=== PATIENT | male | born 1960 | race Caucasian/White ===

== ENCOUNTER → 2018-03-11 08:15 | Outpatient (CLI) | payer MEDICAID, SELFPAY ==
[2018-03-11 08:39] LABS: HCT 51.1 % (40.0-50.0); HGB 17.3 g/dL (13.5-17.5); Mean Corp. HGB Concentration 33.9 g/dL (32.0-36.0); Mean Corpuscular Hemoglobin 30.6 pg (27.0-33.0); Mean Corpuscular Volume 90.4 fL (80-95); Mean Platelet Volume 10.8 fL (8.0-11.0); Platelet Count 212 x1000/uL (130-400); RBC 5.65 m/cumm (4.50-6.00); RBC Distribution Width 13.1 % (11.8-14.1); White Blood Cell Count 10.85 k/cumm (4.4-10.8)
[2018-03-11 10:56] LABS: Anion Gap 10.5 mmol/L (3-11); BUN 9 mg/dL (7-18); CO2 28.5 mmol/L (21.0-32.0); CREATININE 1.19 mg/dL (0.70-1.30); Calcium 8.1 mg/dL (8.5-10.1); Chloride 100 mmol/L (98-107); Cholesterol 224 mg/dL (50-200); Glucose 284 mg/dL (70-100); HDL Cholesterol 40 mg/dL (40-60); LDL CHOLESTEROL 153 mg/dL (<100); Potassium 4.3 mmol/L (3.5-5.1); Sodium 139 mmol/L (136-145); Triglyceride 189 mg/dL (30-150)
== END ==
PROVIDERS: PCP Internal Medicine; Visit Provider Internal Medicine
DX: E11.9 Type 2 diabetes mellitus without complications (principal); E78.00 Pure hypercholesterolemia, unspecified; I10 Essential (primary) hypertension; F10.10 Alcohol abuse, uncomplicated
CPT/HCPCS: 36415; 80048; 80061; 83721; 85027

== ENCOUNTER 2018-09-10 22:32 | Emergency (ER) | payer MEDICAID, SELFPAY ==
--- NOTE | 2018-09-10 22:25 | DI.COMBO_ITS ---
SYMPTOM/DIAGNOSIS: RT HEMINEGLECT, MENTAL STATUS CHANGES NONCONTRAST HEAD CT: A noncontrast cranial CT was performed. There is moderate generalized cerebral atrophy. There are patchy areas of decreased attenuation in periventricular white matter consistent with microvascular ischemic changes. Probable small lacunar infarcts and tiny old cerebellar infarcts also noted. No evidence of acute intracranial hemorrhage, mass effect or midline shift. CONCLUSION: No evidence of acute intracranial process. PORTABLE AP CHEST: The heart is not enlarged. The lungs are grossly clear and well expanded. CONCLUSION: No evidence of acute disease.
--- NOTE | 2018-09-10 22:25 | W.ED.GENAD ---
Discharge Plan Disposition Patient Disposition: [facility] Condition: Serious Discharge Details Chief Complaint: AMS/LOC Clinical Impression: Acute CVA (cerebrovascular accident) Reason For Visit: DARA Primary Care Provider: Kay Sharp ED Provider: Alistair Wu Home Meds and New Rx's Prescriptions: No Action ibuprofen 200 MG tablet 600 mg PO Q4H PRN RF: 0 blood-glucose meter [OneTouch Ultra System Kit] 1 EACH kit 1 ea Miscellaneous DAILY Qty: 1 RF: 0 ammonium lactate 225 GM lotion 225 gm Topical HS PRNQty: 225 RF: 5 clotrimazole 45 GM cream 45 gm Topical BID Qty: 1 RF: 2 aspirin [Aspir-81] 81 MG tablet,delayed release (DR/EC) 81 mg PO DAILY Qty: 90 RF: 3 glimepiride [Amaryl] 2 MG tablet 2 mg PO DAILY Qty: 90 RF: 3 lanolin bpfhxoo-tr-x.pet-ceres 57 GM cream 1 miriam Topical DAILY Qty: 57 RF: 1 glimepiride 4 MG tablet 4 mg PO DAILY Qty: 90 RF: 3 atorvastatin 80 MG tablet 80 mg PO DAILY Qty: 90 RF: 3 blood-glucose meter [OneTouch Ultra2] 1 EACH kit 1 ea Miscellaneous DAILY PRNQty: 1 RF: 0 alcohol swabs [Alcohol Prep Pads] 1 EACH pads, medicated 1 ea Topical DAILY PRNQty: 100 RF: 3 ProAir HFA 8.5 GM HFA aerosol inhaler 1 - 2 puff Inhalation Q4H PRN Qty: 1 RF: 5 Spiriva with HandiHaler 18 MCG capsule, w/inhalation device 18 mcg Inhalation DAILY Qty: 90 RF: 3 metformin 1,000 MG tablet extended release 24hr 1,000 mg PO DAILY Qty: 90 RF: 3 amlodipine-benazepril 1 EACH capsule 1 ea PO DAILY Qty: 90 RF: 3 lancets [OneTouch Delica Lancets] 1 EACH misc 1 ea Miscellaneous DAILY Qty: 100 RF: 3 OneTouch Ultra Test 1 EACH strip 1 ea Miscellaneous DAILY Qty: 100 RF: 11 doxycycline monohydrate 100 MG capsule 100 mg PO BID Qty: 14 RF: 0 Symbicort 10.2 GM HFA aerosol inhaler 2 inh Inhalation BID Qty: 3 RF: 3 methocarbamol 500 MG tablet 500 mg PO TID PRNQty: 20 RF: 0 Medical Decision Making 58-year-old male presents via EMS. They report that the patient was found down, unresponsive by bystanders who were not very historians otherwise and unable to report last time patient seen and normal. He was noted to have right hemineglect and expressive aphasia en route. En route he was hypertensive approximately 200/100. EMS reports the patient had RUE tonic flexion at the scene with L gaze deviation. Family subsequently presented to the emergency department approximately 10:50 PM. They stated the patient was awake, alert, playing cribbage up until last seen normal at 9 PM. They state that he sleeps on the floor and he was next found in a position of sleeping on the floor but unresponsive with sonorous respirations and right hemineglect. Patient arrives afebrile with a pulse of 100, blood pressure 157/82 with right hemineglect. Eyes are open, deviated to the left, patient nonverbal, withdraws and localizes pain. For large territory stroke and patient sent for stat CT scan. This does not show any acute hemorrhage. CT and case reviewed with Dr. Tavarez who agrees with proceeding with thrombolytic therapy. I consented the patient's sisters for the administration of alteplase including the risk of hemorrhagic conversion. [facility] not available for transfer. [facility] to transport. Sisters- Lavern , and Anum Cho ([phone]) were consented for thrombolytic therapy. Lab Data Lab results reviewed: Yes I reviewed the patient's lab results. Laboratory Results - last 24 hr 09/10/18 09/10/18 09/10/18 22:30 22:30 22:30 WBC 13.41 H RBC 5.76 Hgb 17.3 Hct 50.2 H MCV 87.2 MCH 30.0 MCHC 34.5 RDW 12.3 Plt Count 214 MPV 10.8 Immature Gran % 0.6 Neutrophils % 63.1 Lymphocytes % 25.4 Monocytes % 8.5 Eosinophils % 2.2 Basophils % 0.2 Absolute Neutrophils 8.46 H Absolute Lymphocytes 3.41 H Absolute Monocytes 1.14 H Absolute Eosinophils 0.30 Absolute Basophils 0.03 PT INR APTT Sodium 137 Potassium 3.6 Chloride 96 L Carbon Dioxide 29.5 Anion Gap 11.5 H BUN 21 H Creatinine 1.56 H Estimated GFR/1.73 m2 46.27 Glucose 374 H Calcium 9.5 Magnesium 1.7 L Total Bilirubin 0.3 AST 12 L ALT 24 Alkaline Phosphatase 119 H Troponin I < 0.02 Total Protein 8.2 Albumin 3.5 Ethyl Alcohol < 3.0 09/10/18 22:30 WBC RBC Hgb Hct MCV MCH MCHC RDW Plt Count MPV Immature Gran % Neutrophils % Lymphocytes % Monocytes % Eosinophils % Basophils % Absolute Neutrophils Absolute Lymphocytes Absolute Monocytes Absolute Eosinophils Absolute Basophils PT 9.1 L INR 0.9 APTT 22.5 Sodium Potassium Chloride Carbon Dioxide Anion Gap BUN Creatinine Estimated GFR/1.73 m2 Glucose Calcium Magnesium Total Bilirubin AST ALT Alkaline Phosphatase Troponin I Total Protein Albumin Ethyl Alcohol ECG Data Attestation: I personally reviewed and interpreted this ECG (s) as follows: Interpretation: Regular, sinus tachycardia with a rate of 107, the QRS is narrow, poor baseline, no ST segment elevation HPI General Mode of arrival: EMS. Date/Time Provider Initiated Documentation: 09/10/18 22:35. Limitations to Documentation: altered mental status. Information obtained by: EMS. History of Present Illness 58 year old M presents to the emergency department with the chief complaint of Found down by bystanders at home with mental status changes,R hemineglect, described as severe, Patient notes other (Pt unable to relate history). Patient did receive the following treatments prior to arrival, none Related Data Home Medications Medication Instructions Recorded Confirmed ibuprofen 600 mg PO Q4H PRN tab 03/24/14 blood-glucose meter [One Touch #1 kit 10/11/14 Ultra System] ammonium lactate 225 gm TOPICAL HS PRN #225 gm 11/16/15 aspirin [Aspir 81] 81 mg PO DAILY #90 tab 05/09/16 clotrimazole 45 gm TOPICAL BID #1 tube 05/09/16 glimepiride [Amaryl] 2 mg PO DAILY #90 tab-cap 01/02/17 lanolin tduwpms-ei-x.pet-ceres 1 miriam TOPICAL DAILY #57 g 03/25/17 albuterol sulfate [Proair Hfa] 1 - 2 puff INHALATION Q4H PRN #1 10/09/17 inhaler alcohol swabs [Alcohol Prep Pads] 1 ea TOPICAL DAILY PRN #100 script 10/09/17 amlodipine-benazepril 1 ea PO DAILY #90 tab-cap 10/09/17 09/10/18 atorvastatin 80 mg PO DAILY #90 tab-cap 10/09/17 09/10/18 blood sugar diagnostic [Onetouch #100 strip 10/09/17 Ultra Test Strips] blood-glucose meter [Onetouch #1 kit 10/09/17 Ultra2] glimepiride 4 mg PO DAILY #90 tab-cap 10/09/17 09/10/18 lancets [Onetouch Delica] #100 ea 10/09/17 metformin 1,000 mg PO DAILY #90 tab-cap 10/09/17 09/10/18 tiotropium bromide [Spiriva 18 mcg INHALATION DAILY #90 tab-cap 10/09/17 Handihaler] budesonide-formoterol [Symbicort 2 inh INHALATION BID #3 inhaler 03/11/18 160/4.5 Mcg Inhaler] doxycycline monohydrate 100 mg PO BID #14 tab-cap 03/11/18 methocarbamol 500 mg PO TID PRN #20 tab 03/11/18 Previous Rx's Medication Instructions Recorded albuterol sulfate [Proair Hfa] 1 - 2 puff INHALATION Q4H PRN #1 10/09/17 inhaler amlodipine-benazepril 1 ea PO DAILY #90 tab-cap 10/09/17 atorvastatin 80 mg PO DAILY #90 tab-cap 10/09/17 blood sugar diagnostic [Onetouch #100 strip 10/09/17 Ultra Test Strips] glimepiride 4 mg PO DAILY #90 tab-cap 10/09/17 lancets [Onetouch Delica] #100 ea 10/09/17 metformin 1,000 mg PO DAILY #90 tab-cap 10/09/17 tiotropium bromide [Spiriva 18 mcg INHALATION DAILY #90 tab-cap 10/09/17 Handihaler] budesonide-formoterol [Symbicort 2 inh INHALATION BID #3 inhaler 03/11/18 160/4.5 Mcg Inhaler] doxycycline monohydrate 100 mg PO BID #14 tab-cap 03/11/18 Allergies Allergy/AdvReac Type Severity Reaction Status Date / Time No Known Allergies Allergy Unverified 09/10/18 22:56 Review of Systems Review of Systems Unobtainable due to mental condition PFSH Surgical History Laparotomy Family History Mother Diabetes Heart disease Father Substance abuse Social History Smoking and Tabacco status: Current every day Exam Narrative Exam Narrative: GEN: awake, right hemineglect, leftward gaze. HEAD: Normocephalic, atraumatic ENT: Mucous membranes moist, oropharynx unremarkable, External ear exam unremarkable EYES: PERRL, leftward gaze NECK: Full ROM, no RIAN, no menigismus CHEST/RESP: Nontender, coarse rhonchi by CARDIOVASCULAR: Distant RRR, no murmur, rub lazara. 2+ Rad pulse bilateral ABDOMEN: Soft, nontender, no mass. +Bowel sounds EXT: Full ROM, no edema, no rash Neuro: Lying on gurney, right hemineglect, right upper extremity is flaccid,, right facial droop. Psych: unable to assess Neuro Cognition: abnormal cognition Speech: expressive aphasia Critical Care Time Critical Care Time: Yes Total Critical Care Time: 30
[2018-09-10 22:27] VITALS: BP 157/82; PULSE 108; RESP 23; TEMP 36.8; O2SAT 97
--- NOTE | 2018-09-10 22:28 | ED.GENADUL_ITS ---
Discharge Plan Disposition Patient Disposition: [facility] Condition: Serious Discharge Details Chief Complaint: AMS/LOC Clinical Impression: Acute CVA (cerebrovascular accident) Reason For Visit: DARA Primary Care Provider: Kay Sharp ED Provider: Alistair Wu Home Meds and New Rx's Prescriptions: No Action ibuprofen 200 MG tablet 600 mg PO Q4H PRN RF: 0 blood-glucose meter [OneTouch Ultra System Kit] 1 EACH kit 1 ea Miscellaneous DAILY Qty: 1 RF: 0 ammonium lactate 225 GM lotion 225 gm Topical HS PRNQty: 225 RF: 5 clotrimazole 45 GM cream 45 gm Topical BID Qty: 1 RF: 2 aspirin [Aspir-81] 81 MG tablet,delayed release (DR/EC) 81 mg PO DAILY Qty: 90 RF: 3 glimepiride [Amaryl] 2 MG tablet 2 mg PO DAILY Qty: 90 RF: 3 lanolin iatryzl-mj-d.pet-ceres 57 GM cream 1 miriam Topical DAILY Qty: 57 RF: 1 glimepiride 4 MG tablet 4 mg PO DAILY Qty: 90 RF: 3 atorvastatin 80 MG tablet 80 mg PO DAILY Qty: 90 RF: 3 blood-glucose meter [OneTouch Ultra2] 1 EACH kit 1 ea Miscellaneous DAILY PRNQty: 1 RF: 0 alcohol swabs [Alcohol Prep Pads] 1 EACH pads, medicated 1 ea Topical DAILY PRNQty: 100 RF: 3 ProAir HFA 8.5 GM HFA aerosol inhaler 1 - 2 puff Inhalation Q4H PRN Qty: 1 RF: 5 Spiriva with HandiHaler 18 MCG capsule, w/inhalation device 18 mcg Inhalation DAILY Qty: 90 RF: 3 metformin 1,000 MG tablet extended release 24hr 1,000 mg PO DAILY Qty: 90 RF: 3 amlodipine-benazepril 1 EACH capsule 1 ea PO DAILY Qty: 90 RF: 3 lancets [OneTouch Delica Lancets] 1 EACH misc 1 ea Miscellaneous DAILY Qty: 100 RF: 3 OneTouch Ultra Test 1 EACH strip 1 ea Miscellaneous DAILY Qty: 100 RF: 11 doxycycline monohydrate 100 MG capsule 100 mg PO BID Qty: 14 RF: 0 Symbicort 10.2 GM HFA aerosol inhaler 2 inh Inhalation BID Qty: 3 RF: 3 methocarbamol 500 MG tablet 500 mg PO TID PRNQty: 20 RF: 0 Medical Decision Making 58-year-old male presents via EMS. They report that the patient was found down, unresponsive by bystanders who were not very historians otherwise and unable to report last time patient seen and normal. He was noted to have right hemineglect and expressive aphasia en route. En route he was hypertensive approximately 200/100. EMS reports the patient had RUE tonic flexion at the scene with L gaze deviation. Family subsequently presented to the emergency department approximately 10:50 PM. They stated the patient was awake, alert, playing cribbage up until last seen normal at 9 PM. They state that he sleeps on the floor and he was next found in a position of sleeping on the floor but unresponsive with sonorous respirations and right hemineglect. Patient arrives afebrile with a pulse of 100, blood pressure 157/82 with right hemineglect. Eyes are open, deviated to the left, patient nonverbal, withdraws and localizes pain. For large territory stroke and patient sent for stat CT scan. This does not show any acute hemorrhage. CT and case reviewed with Dr. Tavarez who agrees with proceeding with thrombolytic therapy. I consented the patient's sisters for the administration of alteplase including the risk of hemorrhagic conversion. [facility] not available for transfer. [facility] to transport. Sisters- Lavern , and Anum Cho ([phone]) were consented for thrombolytic therapy. Lab Data Lab results reviewed: Yes I reviewed the patient's lab results. Laboratory Results - last 24 hr 09/10/18 09/10/18 09/10/18 22:30 22:30 22:30 WBC 13.41 H RBC 5.76 Hgb 17.3 Hct 50.2 H MCV 87.2 MCH 30.0 MCHC 34.5 RDW 12.3 Plt Count 214 MPV 10.8 Immature Gran % 0.6 Neutrophils % 63.1 Lymphocytes % 25.4 Monocytes % 8.5 Eosinophils % 2.2 Basophils % 0.2 Absolute Neutrophils 8.46 H Absolute Lymphocytes 3.41 H Absolute Monocytes 1.14 H Absolute Eosinophils 0.30 Absolute Basophils 0.03 PT INR APTT Sodium 137 Potassium 3.6 Chloride 96 L Carbon Dioxide 29.5 Anion Gap 11.5 H BUN 21 H Creatinine 1.56 H Estimated GFR/1.73 m2 46.27 Glucose 374 H Calcium 9.5 Magnesium 1.7 L Total Bilirubin 0.3 AST 12 L ALT 24 Alkaline Phosphatase 119 H Troponin I < 0.02 Total Protein 8.2 Albumin 3.5 Ethyl Alcohol < 3.0 09/10/18 22:30 WBC RBC Hgb Hct MCV MCH MCHC RDW Plt Count MPV Immature Gran % Neutrophils % Lymphocytes % Monocytes % Eosinophils % Basophils % Absolute Neutrophils Absolute Lymphocytes Absolute Monocytes Absolute Eosinophils Absolute Basophils PT 9.1 L INR 0.9 APTT 22.5 Sodium Potassium Chloride Carbon Dioxide Anion Gap BUN Creatinine Estimated GFR/1.73 m2 Glucose Calcium Magnesium Total Bilirubin AST ALT Alkaline Phosphatase Troponin I Total Protein Albumin Ethyl Alcohol ECG Data Attestation: I personally reviewed and interpreted this ECG (s) as follows: Interpretation: Regular, sinus tachycardia with a rate of 107, the QRS is narrow, poor baseline, no ST segment elevation HPI General Mode of arrival: EMS . Date/Time Provider Initiated Documentation: 09/10/18 22:35 . Limitations to Documentation: altered mental status . Information obtained by: EMS . History of Present Illness 58 year old M presents to the emergency department with the chief complaint of Found down by bystanders at home with mental status changes,R hemineglect, described as severe, Patient notes other (Pt unable to relate history). Patient did receive the following treatments prior to arrival, none Related Data Home Medications Medication Instructions Recorded Confirmed ibuprofen 600 mg PO Q4H PRN tab 03/24/14 blood-glucose meter [One Touch #1 kit 10/11/14 Ultra System] ammonium lactate 225 gm TOPICAL HS PRN #225 gm 11/16/15 aspirin [Aspir 81] 81 mg PO DAILY #90 tab 05/09/16 clotrimazole 45 gm TOPICAL BID #1 tube 05/09/16 glimepiride [Amaryl] 2 mg PO DAILY #90 tab-cap 01/02/17 lanolin dpgagys-dm-x.pet-ceres 1 miriam TOPICAL DAILY #57 g 03/25/17 albuterol sulfate [Proair Hfa] 1 - 2 puff INHALATION Q4H PRN #1 10/09/17 inhaler alcohol swabs [Alcohol Prep Pads] 1 ea TOPICAL DAILY PRN #100 script 10/09/17 amlodipine-benazepril 1 ea PO DAILY #90 tab-cap 10/09/17 09/10/18 atorvastatin 80 mg PO DAILY #90 tab-cap 10/09/17 09/10/18 blood sugar diagnostic [Onetouch #100 strip 10/09/17 Ultra Test Strips] blood-glucose meter [Onetouch #1 kit 10/09/17 Ultra2] glimepiride 4 mg PO DAILY #90 tab-cap 10/09/17 09/10/18 lancets [Onetouch Delica] #100 ea 10/09/17 metformin 1,000 mg PO DAILY #90 tab-cap 10/09/17 09/10/18 tiotropium bromide [Spiriva 18 mcg INHALATION DAILY #90 tab-cap 10/09/17 Handihaler] budesonide-formoterol [Symbicort 2 inh INHALATION BID #3 inhaler 03/11/18 160/4.5 Mcg Inhaler] doxycycline monohydrate 100 mg PO BID #14 tab-cap 03/11/18 methocarbamol 500 mg PO TID PRN #20 tab 03/11/18 Previous Rx's Medication Instructions Recorded albuterol sulfate [Proair Hfa] 1 - 2 puff INHALATION Q4H PRN #1 10/09/17 inhaler amlodipine-benazepril 1 ea PO DAILY #90 tab-cap 10/09/17 atorvastatin 80 mg PO DAILY #90 tab-cap 10/09/17 blood sugar diagnostic [Onetouch #100 strip 10/09/17 Ultra Test Strips] glimepiride 4 mg PO DAILY #90 tab-cap 10/09/17 lancets [Onetouch Delica] #100 ea 10/09/17 metformin 1,000 mg PO DAILY #90 tab-cap 10/09/17 tiotropium bromide [Spiriva 18 mcg INHALATION DAILY #90 tab-cap 10/09/17 Handihaler] budesonide-formoterol [Symbicort 2 inh INHALATION BID #3 inhaler 03/11/18 160/4.5 Mcg Inhaler] doxycycline monohydrate 100 mg PO BID #14 tab-cap 03/11/18 Allergies Allergy/AdvReac Type Severity Reaction Status Date / Time No Known Allergies Allergy Unverified 09/10/18 22:56 Review of Systems Review of Systems Unobtainable due to mental condition PFSH Surgical History Laparotomy Family History Mother Diabetes Heart disease Father Substance abuse Social History Smoking and Tabacco status: Current every day Exam Narrative Exam Narrative: GEN: awake, right hemineglect, leftward gaze. HEAD: Normocephalic, atraumatic ENT: Mucous membranes moist, oropharynx unremarkable, External ear exam unremarkable EYES: PERRL, leftward gaze NECK: Full ROM, no RIAN, no menigismus CHEST/RESP: Nontender, coarse rhonchi by CARDIOVASCULAR: Distant RRR, no murmur, rub lazara. 2+ Rad pulse bilateral ABDOMEN: Soft, nontender, no mass. +Bowel sounds EXT: Full ROM, no edema, no rash Neuro: Lying on gurney, right hemineglect, right upper extremity is flaccid,, right facial droop. Psych: unable to assess Neuro Cognition: abnormal cognition Speech: expressive aphasia Critical Care Time Critical Care Time: Yes Total Critical Care Time: 30
[2018-09-10 22:30] VITALS: BP 172/114; PULSE 106; RESP 17; O2SAT 100
[2018-09-10 22:36] LABS: Abs Immature Grans 0.08 k/cumm (0.0-0.09); Absolute Basophil Count 0.03 k/cumm (0.0-0.2); Absolute Monocyte Count 1.14 k/cumm (0.11-0.7); Basophils % 0.2; Eosinophils % 2.2; HCT 50.2 % (40.0-50.0); HGB 17.3 g/dL (13.5-17.5); Immature Grans % 0.6; Lymphocytes % 25.4; Mean Corp. HGB Concentration 34.5 g/dL (32.0-36.0); Mean Corpuscular Volume 87.2 fL (80-95); Mean Platelet Volume 10.8 fL (8.0-11.0); Monocytes % 8.5; Neutrophils % 63.1; Platelet Count 214 x1000/uL (130-400); RBC 5.76 m/cumm (4.50-6.00); RBC Distribution Width 12.3 % (11.8-14.1); White Blood Cell Count 13.41 k/cumm (4.4-10.8)
[2018-09-10 22:45] LABS: Absolute Lymphocyte Count 3.41 k/cumm (1.2-3.4); Absolute Neutrophil Count 8.46 k/cumm (1.2-6.7)
--- NOTE | 2018-09-10 22:50 | DI.VRAD_ITS ---
Addendum created by Ra Hooker MD on 09/10/2018 11:15:44 PM EST This case was discussed personally with DUSTIN WASHBURN at 11:14 PM EST on 09/10/2018. Initial report created on 09/10/2018 10:49:59 PM EST EXAM: CT Head Without Contrast EXAM DATE/TIME: 09/10/2018 10:25 PM CLINICAL HISTORY: 58 years old, male; Signs and symptoms; Altered mental status/memory loss; Additional info: Right hemineglect, mental status change TECHNIQUE: Axial computed tomography images of the head/brain without contrast. All CT scans at this facility use at least one of these dose optimization techniques: automated exposure control; mA and/or kV adjustment per patient size (includes targeted exams where dose is matched to clinical indication); or iterative reconstruction. Coronal and sagittal reformatted images were created and reviewed. STROKE PROTOCOL was implemented. COMPARISON: CT HEAD AND NECK WO CONTRAST 09/09/2012 12:51 AM FINDINGS: Brain: No acute intracranial hemorrhage, mass-effect, midline shift, or extra-axial collection is seen. The doherty white matter differentiation appears preserved. There is patchy hypoattenuation in the region of the basal ganglia, deep white matter tracks, and thalami, probably prominent perivascular spaces and/or lacunar infarcts of uncertain chronicity. There is global parenchymal volume loss. Atrophic changes appear greater in the cerebellum than in the supratentorial brain Ventricles: The ventricular system and basilar cisterns appear appropriate in size and configuration. Bones/joints: The bony calvarium appears intact. No depressed skull fracture is seen. Sinuses: The paranasal sinuses appear clear. No air-fluid levels are seen. Mastoid air cells: The mastoid air cells appear clear. Auditory system: The middle ear cavities appear clear. Soft tissue density material within the left external auditory canal presumably represents cerumen; however, direct inspection is recommended for definitive evaluation. Orbits: The globes and intraorbital structures appear grossly intact. Soft tissues: No significant scalp lesion is demonstrated. IMPRESSION: 1. No acute intracranial abnormality seen. 2. Presumed chronic microvascular ischemic change. 3. Global parenchymal volume loss. Atrophic changes appear greater in the cerebellum than in the supratentorial brain. 4. Patchy hypoattenuation in the region of the basal ganglia, deep white matter tracks, and thalami, probably representing prominent perivascular spaces and/or lacunar infarcts of uncertain chronicity. ASSESSMENT: ASPECTS ([place] Stroke Program Early CT Score) is 10. Dictated and Authenticated by: Ra Hooker MD. Ordering:SHAMIKA Sainz MD
[2018-09-10 22:55] LABS: ALT 24 U/L (12-78); AST 12 U/L (15-37); Albumin 3.5 g/dL (3.4-5.0); Alkaline Phosphatase 119 U/L (46-116); Anion Gap 11.5 mmol/L (3-11); BUN 21 mg/dL (7-18); Bilirubin, Total 0.3 mg/dL (0.2-1.0); CO2 29.5 mmol/L (21.0-32.0); CREATININE 1.56 mg/dL (0.70-1.30); Calcium 9.5 mg/dL (8.5-10.1); Chloride 96 mmol/L (98-107); Estimated GFR 46.27 (mL/min/1.73m2); Glucose 374 mg/dL (70-100); Magnesium 1.7 mg/dL (1.8-2.4); Potassium 3.6 mmol/L (3.5-5.1); Sodium 137 mmol/L (136-145); Total Protein 8.2 g/dL (6.4-8.2)
[2018-09-10 22:57] LABS: Troponin I < 0.02 ng/mL (0.00-0.06)
[2018-09-10] MEDS: Normal Saline 1,000 ML 125 ML IV (22:57)
[2018-09-10 22:58] LABS: ETHANOL BLOOD < 3.0 mg/dL (<3)
[2018-09-10] MEDS: Normal Saline Flush 10 ML SYR IVP (22:58)
[2018-09-10 23:00] VITALS: BP 185/95; PULSE 100; RESP 22; O2SAT 98
--- NOTE | 2018-09-10 23:07 | DI.VRAD_ITS ---
EXAM: XR Chest, 1 View EXAM DATE/TIME: 09/10/2018 10:45 PM CLINICAL HISTORY: 58 years old, male; Signs and symptoms; Other: Right hemineglect; Additional info: Right hemineglect, mental status change TECHNIQUE: XR of the chest, 1 view. COMPARISON: CR RIGHT RIBS TO INCLUDE CXR 03/05/2013 10:48 AM FINDINGS: Lungs: The lungs appear clear. Pleural space: No pleural effusion or pneumothorax is seen. Heart/Mediastinum: The heart appears normal in size. The mediastinal contours appear normal. Bones/joints: The visualized bony structures appear grossly intact. IMPRESSION: No active disease is seen in the chest. Dictated and Authenticated by: Ra Hooker MD. Ordering:SHAMIKA Sainz MD
[2018-09-10 23:30] VITALS: BP 143/96; PULSE 100; RESP 23; O2SAT 95
[2018-09-10 23:32] LABS: INR 0.9 (0.9-1.1); PTT Activated 22.5 sec (21.0-31.4); Prothrombin Time 9.1 sec (9.3-11.0)
[2018-09-11 00:03] VITALS: BP 143/96; PULSE 100; RESP 23; TEMP 36.1; O2SAT 95
== END 2018-09-10 23:49 | disposition short-term general hospital (02) ==
LOC: ER 23:34
PROVIDERS: Emergency Provider Emergency Medicine; PCP Internal Medicine
DX: I63.9 Cerebral infarction, unspecified (principal); R00.0 Tachycardia, unspecified; I10 Essential (primary) hypertension
CPT/HCPCS: 36415; 36416; 80053; 82962; 93005; 96360; 99285; 70450; 71045; 80320; 83735; 84484; 85025; 85610; 85730; 93010; 99284; J2997